=== PATIENT | male | born 1945 | race Caucasian/White ===

== ENCOUNTER 2016-12-30 18:59 | Observation (INO) ==
[2016-12-30] MEDS ORDERED: NITROGLYCERIN SL 0.4 MG TABLET SL STA (19:26)
[2016-12-30] MEDS ORDERED: ONDANSETRON 4 MG/2 ML VIAL IV STA (19:26)
[2016-12-30] MEDS ORDERED: NITROGLYCERIN SL 0.4 MG TABLET SL ONE (19:33)
[2016-12-30] MEDS ORDERED: ONDANSETRON 4 MG/2 ML VIAL ONE (19:33)
[2016-12-30 19:39] LABS: Basophils # 0.1 10*3/uL (0.0-0.2); Basophils % 0.7 % (0.0-0.8); Eosinophils # 0.3 10*3/uL (0.0-0.87); Eosinophils % 4.2 % (0.00-10.9); Hematocrit 39.2 VOL% (42.0-52.0); Immature Granulocytes % 0.3 %; Immature Granulocytes Absolute 0.02 #; Lymphocytes # 1.9 10*3/uL (1.4-4.0); Lymphocytes % 24.5 % (21.2-54.2); Mean Corpuscular HGB Conc 35.7 GM/DL (32-36); Mean Corpuscular Hemoglobin 30 PG (27-34); Mean Corpuscular Volume 84.1 FL (87-102); Mean Platelet Volume 9.3 FL (9.6-12.0); Monocytes # 0.8 10*3/uL (0.11-0.8); Monocytes % 10.6 % (1.7-12.7); Neutrophils # 4.6 10*3/uL (1.4-7.4); Neutrophils % 59.7 % (38.7-73.9); Platelet Count 163 T/CUMM (130-400); Red Blood Count 4.66 MC/CUMM (3.8-5.5); Red Cell Distribution Width 13.6 % (9.3-17.3); White Blood Count 7.6 T/CUMM (4-12)
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
--- NOTE | 2016-12-30 19:49 | XRay Report ---
XR chest 1V portable Indication: Chest pain Comparison: 07 December 2016 Findings: The heart and mediastinum are stable in size and configuration. Pacemaker device is unchanged in position. The pulmonary vascularity is normal in caliber. There is increased left lower lung density. No other lung infiltrates, effusions, pneumothorax or other abnormality is demonstrated. Impression: Small amount of increased left lower lung density could indicate pneumonia. PROCEDURE INTERPRETED AT [facility] DEPARTMENT OF RADIOLOGY Final Report Signed by: Dr. Eric Donohue
[2016-12-30 19:50] LABS: PT Patient Result 10.1 SECS; Partial Thromboplastin Time 27.5 SECS (0-40)
[2016-12-30 20:21] LABS: Alanine Aminotransferase 23 U/L (16-61); Albumin 3.6 G/DL (3.4-5.0); Alkaline Phosphatase 100 U/L (45-117); Aspartate Amino Transferase 14 U/L (0-37); Blood Urea Nitrogen 13 MG/DL (7-18); Calcium 8.6 MG/DL (8.5-10.1); Glucose 133 MG/DL (74-106); Osmolality,Calculated 282.3 MOS/KG (273-304); Potassium 3.7 MMOL/L (3.5-5.1); Sodium 141 MMOL/L (136-145); Total Protein 6.8 G/DL (6.4-8.3); Troponin I Only < 0.015 NG/ML (0.00-0.045)
[2016-12-30] MEDS ORDERED: ALBUTEROL/IPRATROPIUM 3 ML NEB RESP TX STA (20:50)
[2016-12-30] MEDS ORDERED: LEVOFLOXACIN INJ 750 MG in PREMIX 1 EACH IV STA (20:51)
[2016-12-30] MEDS ORDERED: LEVOFLOXACIN INJ 150 ML IV ONE (20:59)
[2016-12-30] MEDS ORDERED: ACETAMINOPHEN 325 MG TABLET PO PRN (22:17)
[2016-12-30] MEDS ORDERED: ONDANSETRON 4 MG/2 ML VIAL IV PRN (22:17)
[2016-12-30] MEDS ORDERED: GABAPENTIN 100 MG CAPSULE PO PRN (22:21)
[2016-12-30] MEDS ORDERED: DICLOFENAC 1% GEL 100 GM TUBE TOP PRN (22:21)
[2016-12-30] MEDS ORDERED: traMADol 50 MG TABLET PO PRN (22:21)
[2016-12-30] MEDS ORDERED: ENOXAPARIN 40 MG/0.4 ML SYRINGE SUBCUT SCH (22:30)
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
--- NOTE | 2016-12-31 01:33 | Order Completion Report ---
See report scanned to EMR
[2016-12-31 01:54] LABS: Basophils # 0.1 10*3/uL (0.0-0.2); Basophils % 0.7 % (0.0-0.8); Eosinophils # 0.2 10*3/uL (0.0-0.87); Eosinophils % 2.8 % (0.00-10.9); Hematocrit 37.1 VOL% (42.0-52.0); Hemoglobin 13.3 GM/DL (14.0-18.0); Immature Granulocytes % 0.3 %; Immature Granulocytes Absolute 0.02 #; Lymphocytes # 1.9 10*3/uL (1.4-4.0); Lymphocytes % 25.3 % (21.2-54.2); Mean Corpuscular HGB Conc 35.8 GM/DL (32-36); Mean Corpuscular Hemoglobin 30 PG (27-34); Mean Corpuscular Volume 84.5 FL (87-102); Mean Platelet Volume 10.2 FL (9.6-12.0); Monocytes # 0.7 10*3/uL (0.11-0.8); Monocytes % 9.2 % (1.7-12.7); Neutrophils # 4.6 10*3/uL (1.4-7.4); Neutrophils % 61.7 % (38.7-73.9); Platelet Count 159 T/CUMM (130-400); Red Blood Count 4.39 MC/CUMM (3.8-5.5); Red Cell Distribution Width 13.7 % (9.3-17.3); White Blood Count 7.5 T/CUMM (4-12)
[2016-12-31 01:59] LABS: Calcium 8.5 MG/DL (8.5-10.1); Magnesium 2.1 MG/DL (1.8-2.4); Osmolality,Calculated 286.8 MOS/KG (273-304)
[2016-12-31] MEDS ORDERED: FUROSEMIDE 40 MG TABLET PO SCH (08:00)
[2016-12-31] MEDS ORDERED: DILTIAZEM 30 MG TABLET PO SCH (09:00)
[2016-12-31] MEDS ORDERED: PANTOPRAZOLE 40 MG TABLET PO SCH (09:00)
[2016-12-31] MEDS ORDERED: CHOLECALCIFEROL 1,000 UNIT TABLET PO SCH (09:00)
[2016-12-31] MEDS ORDERED: TAMSULOSIN 0.4 MG CAPSULE PO SCH (09:00)
[2016-12-31] MEDS ORDERED: POTASSIUM CHLORIDE 20 MEQ TABLET PO SCH (09:00)
[2016-12-31] MEDS ORDERED: PROPRANOLOL 20 MG TABLET PO SCH (09:00)
[2016-12-31] MEDS ORDERED: FINASTERIDE 5 MG TABLET PO SCH (09:00)
[2016-12-31] MEDS ORDERED: ASPIRIN EC 81 MG TABLET PO SCH (09:00)
--- NOTE | 2016-12-31 09:35 | CT Report ---
CT chest wo con Indication: Abnormal left lung density Comparison: None available Technique: Axial CT imaging of the chest was done at 3 mm intervals without intravenous contrast. Findings: Calcified left lung granuloma and calcified left hilar lymph nodes are present The lungs show no evidence of infiltrates or airspace disease. No nodule or mass is identified. No effusion or pneumothorax is seen. The heart heart size is enlarged. Pulmonary vessels are slightly prominent.. Mediastinum and great vessels appear within normal limits. Pacemaker is present and appears within normal limits. No other abnormality is identified. Impression: Cardiomegaly and prominent pulmonary vascularity could indicate mild cardiac decompensation. No other evidence of acute findings. This CT exam was performed using one or more the following dose reduction techniques: Automated exposure control, adjustment of the MA and/or KV according to patient size, or use of iterative reconstruction technique. PROCEDURE INTERPRETED AT [facility] DEPARTMENT OF RADIOLOGY Final Report Signed by: Dr. Eric Donohue
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
[2016-12-31 11:31] VITALS: BP 124/82
--- NOTE | 2016-12-31 12:30 | Discharge Summary ---
Hospital Course - Hospital Course Hospital Course: Mr. Newton is a 71 year old male who has a history of hypertension, hyperlipidemia, and a recent dual-chamber pacemaker implant by Dr. Diez. Patient yesterday experienced some stabbing pains mild sharp pains in his left breast. There is a single spot that seemed to be involved. He checked his blood pressure at home and it was running high. Given his recent pacemaker he became worried and came to the hospital for further evaluation and management. There were no specific exacerbating or relieving factors. There were no associated symptoms such as nausea or diaphoresis. The chest pain was clearly not exertional or anginal in nature. He did not have any palpitations or syncope. On arrival to the hospital the patient's EKG showed no changes to suggest cardiac ischemia. He underwent multiple sets of cardiac enzymes all of which were negative. I personally performed a pacemaker interrogation today. He had excellent capture and sensing thresholds. There was no evidence of any significant abnormality of pacemaker function. Today the patient is not experiencing any symptoms. After discussing all this with the patient today he thinks that the pains were related to a torn rotator cuff in his shoulder. This is a known problem that he has not had addressed yet. He has no other complaints today. From my standpoint, his overnight hospital stay has shown no high risk abnormalities. His cardiac testing has been low risk. His pacemaker interrogation was normal. From my standpoint I think he could be discharged home to follow-up on Monday with his primary outpatient nut sheller machine operator, Dr. Hoyt as scheduled - Time spent with patient Time with patient DS: Less than 30 minutes Diagnosis - Discharge Diagnosis (1) Status post placement of cardiac pacemaker Status: Chronic (2) Hypertension Status: Chronic (3) Dyslipidemia Status: Chronic (4) Obese Status: Chronic (5) Obstructive sleep apnea Status: Chronic (6) Chest pain Status: Resolved Discharge Plan - Discharge Data Disposition: Disch To Home/Self Care Condition at Discharge: Stable Discharge Diet: advance to your usual diet - Discharge Medications Continue dilTIAZem HCl [Diltiazem HCl] 30 mg PO DAILY Tamsulosin [Flomax] 0.4 mg PO BID Propranolol HCl [Propranolol Tab] 20 mg PO BID Potassium Chloride 30 meq PO DAILY Cholecalciferol (Vitamin D3) [Vitamin D3] 5,000 unit PO DAILY Aspirin [Ecotrin] 81 mg PO DAILY Finasteride 5 mg PO DAILY Furosemide Tab [Lasix Tab] 40 mg PO BID DIURETIC #60 tablet Diclofenac 1% Gel [Voltaren 1% Gel] 1 applic TOP QID PRN PRN Reason: Pain Moderate To Severe (4-10) Tramadol HCl [Tramadol Tab] 50 mg PO Q6HR PRN PRN Reason: Pain Gabapentin Cap/Tab [Neurontin Cap/Tab] 100 mg PO TID PRN PRN Reason: Pain - Follow Up or Referral - Forms/Instructions Additional Discharge Instructions: Follow-up with your nut sheller machine operator next week as scheduled Exam - Constitutional Vitals: Period Temp Pulse Resp BP Sys/Mccormick Pulse Ox Last 24 Hr 96.9 F-98.3 F 60-75 15-20 107-152/54-87 92-99 Discharge Results Procedures and tests throughout hospitalization: Pending Orders 12/30/16 21:13 Blood Culture Stat Labs on day of discharge: Labs from last 24 hours 12/31/16 12/31/16 12/31/16 04:16 01:03 01:03 WBC RBC Hgb Hct MCV MCH MCHC RDW Plt Count MPV Neut % (Auto) Lymph % (Auto) [place] % (Auto) Eos % (Auto) Baso % (Auto) Neut # (Auto) Lymph # (Auto) [place] # (Auto) Eos # (Auto) Baso # (Auto) Immature Gran % Nucleated RBC % Immature Gran # Nucleated RBCs # Immature Plt Fraction INR PT Patient/Control Mix Circ Anticoag PTT Sodium 144 Potassium 4.0 Chloride 109 H Carbon Dioxide 27 Anion Gap 12.0 BUN 14 Creatinine 1.10 GFR Calculation 96 BUN/Creatinine Ratio 12.00 Glucose 107 H Hemoglobin A1c Calculated Osmolality 286.8 Calcium 8.5 Magnesium 2.1 Total Bilirubin AST ALT Alkaline Phosphatase Total Creatine Kinase CK-MB (CK-2) Troponin I < 0.015 < 0.015 B-Natriuretic Peptide Total Protein Albumin Globulin Albumin/Globulin Ratio 12/31/16 12/31/16 12/31/16 01:02 01:02 01:02 WBC 7.5 RBC 4.39 Hgb 13.3 L Hct 37.1 L MCV 84.5 L MCH 30 MCHC 35.8 RDW 13.7 Plt Count 159 MPV 10.2 Neut % (Auto) 61.7 Lymph % (Auto) 25.3 [place] % (Auto) 9.2 Eos % (Auto) 2.8 Baso % (Auto) 0.7 Neut # (Auto) 4.6 Lymph # (Auto) 1.9 [place] # (Auto) 0.7 Eos # (Auto) 0.2 Baso # (Auto) 0.1 Immature Gran % 0.3 Nucleated RBC % 0.0 Immature Gran # 0.02 Nucleated RBCs # 0.00 Immature Plt Fraction 0.0 INR PT Patient/Control Mix Circ Anticoag PTT Sodium Potassium Chloride Carbon Dioxide Anion Gap BUN Creatinine GFR Calculation BUN/Creatinine Ratio Glucose Hemoglobin A1c 6.3 Calculated Osmolality Calcium Magnesium Total Bilirubin AST ALT Alkaline Phosphatase Total Creatine Kinase CK-MB (CK-2) Troponin I B-Natriuretic Peptide 31 Total Protein Albumin Globulin Albumin/Globulin Ratio 12/30/16 12/30/16 12/30/16 19:23 19:23 19:23 WBC RBC Hgb Hct MCV MCH MCHC RDW Plt Count MPV Neut % (Auto) Lymph % (Auto) [place] % (Auto) Eos % (Auto) Baso % (Auto) Neut # (Auto) Lymph # (Auto) [place] # (Auto) Eos # (Auto) Baso # (Auto) Immature Gran % Nucleated RBC % Immature Gran # Nucleated RBCs # Immature Plt Fraction INR 1.0 PT Patient/Control Mix 10.1 Circ Anticoag PTT 27.5 Sodium 141 Potassium 3.7 Chloride 107 Carbon Dioxide 27 Anion Gap 10.7 BUN 13 Creatinine 1.10 GFR Calculation 96 BUN/Creatinine Ratio 11.00 Glucose 133 H Hemoglobin A1c Calculated Osmolality 282.3 Calcium 8.6 Magnesium Total Bilirubin 0.40 AST 14 ALT 23 Alkaline Phosphatase 100 Total Creatine Kinase 94 CK-MB (CK-2) 1.4 Troponin I < 0.015 B-Natriuretic Peptide 32 Total Protein 6.8 Albumin 3.6 Globulin 3.2 Albumin/Globulin Ratio 1.1 12/30/16 19:23 WBC 7.6 RBC 4.66 Hgb 14.0 Hct 39.2 L MCV 84.1 L MCH 30 MCHC 35.7 RDW 13.6 Plt Count 163 MPV 9.3 L Neut % (Auto) 59.7 Lymph % (Auto) 24.5 [place] % (Auto) 10.6 Eos % (Auto) 4.2 Baso % (Auto) 0.7 Neut # (Auto) 4.6 Lymph # (Auto) 1.9 [place] # (Auto) 0.8 Eos # (Auto) 0.3 Baso # (Auto) 0.1 Immature Gran % 0.3 Nucleated RBC % 0.0 Immature Gran # 0.02 Nucleated RBCs # 0.00 Immature Plt Fraction 0.0 INR PT Patient/Control Mix Circ Anticoag PTT Sodium Potassium Chloride Carbon Dioxide Anion Gap BUN Creatinine GFR Calculation BUN/Creatinine Ratio Glucose Hemoglobin A1c Calculated Osmolality Calcium Magnesium Total Bilirubin AST ALT Alkaline Phosphatase Total Creatine Kinase CK-MB (CK-2) Troponin I B-Natriuretic Peptide Total Protein Albumin Globulin Albumin/Globulin Ratio DS: Provider Date of admission: 12/30/16 21:54 Primary care physician: Robi Shukla Attending physician on admission: Emir Mancilla MD Consults: 12/30/16 22:17 Consult to Physician [CONS] Routine Comment: Chest pain Consulting Provider: Cardiology - [facility] Discharging clinician: Cassandra Reyez MD Expected date of discharge: 12/31/16
--- NOTE | 2017-01-01 20:10 | Order Completion Report ---
See report scanned to EMR
== END 2016-12-31 13:33 | disposition home or self-care (01) ==
LOC: EDBD → EDUNIT# → N.EDINP 18:59 → N.ED 18:59 → SUATTDRO 21:54 → N.TELES 22:22
PROVIDERS: ADMIT Internal Medicine; ATTEND Family Medicine

== ENCOUNTER 2017-04-20 19:14 | Observation (INO) ==
[2017-04-20] MEDS ORDERED: KETOROLAC 30 MG/1 ML VIAL IV STA (20:28)
[2017-04-20] MEDS ORDERED: ASPIRIN 325 MG TABLET PO STA (20:28)
[2017-04-20] MEDS ORDERED: NITROGLYCERIN 2% OINT 1 INCH/GM PACK TOP STA (20:28)
[2017-04-20] MEDS ORDERED: NITROGLYCERIN 2% OINT 1 INCH/GM PACK TOP ONE (20:38)
[2017-04-20] MEDS ORDERED: KETOROLAC 30 MG/1 ML VIAL ONE (20:39)
[2017-04-20] MEDS ORDERED: ASPIRIN EC 325 MG TABLET PO ONE (20:39)
[2017-04-20 20:44] LABS: Basophils # 0.1 10*3/uL (0.0-0.2); Basophils % 0.6 % (0.0-0.8); Eosinophils # 0.3 10*3/uL (0.0-0.87); Eosinophils % 3.3 % (0.00-10.9); Immature Granulocytes % 0.6 %; Immature Granulocytes Absolute 0.05 #; Lymphocytes # 1.7 10*3/uL (1.4-4.0); Lymphocytes % 20.5 % (21.2-54.2); Mean Corpuscular HGB Conc 33.3 GM/DL (32-36); Mean Corpuscular Hemoglobin 30 PG (27-34); Mean Corpuscular Volume 89.4 FL (87-102); Mean Platelet Volume 10.1 FL (9.6-12.0); Monocytes % 12.2 % (1.7-12.7); Neutrophils # 5.3 10*3/uL (1.4-7.4); Neutrophils % 62.8 % (38.7-73.9); Platelet Count 176 T/CUMM (130-400); Red Blood Count 4.36 MC/CUMM (3.8-5.5); Red Cell Distribution Width 13.7 % (9.3-17.3); White Blood Count 8.4 T/CUMM (4-12)
[2017-04-20 20:49] LABS: Albumin 3.8 G/DL (3.4-5.0); Bilirubin,Total 0.4 MG/DL (0.2-1.0); Calcium 8.8 MG/DL (8.5-10.1); Osmolality,Calculated 286.1 MOS/KG (273-304); Potassium 4.2 MMOL/L (3.5-5.1); Total Protein 6.8 G/DL (6.4-8.3)
[2017-04-20] MEDS ORDERED: ONDANSETRON 4 MG/2 ML VIAL IV PRN (23:34)
[2017-04-20] MEDS ORDERED: ACETAMINOPHEN 325 MG TABLET PO PRN (23:34)
[2017-04-20] MEDS ORDERED: MORPHINE 10 MG/1 ML VIAL IV PRN (23:34)
[2017-04-21] MEDS ORDERED: DILTIAZEM 30 MG TABLET PO PRN (00:27)
[2017-04-21] MEDS ORDERED: DICLOFENAC 1% GEL 100 GM TUBE TOP PRN (00:27)
[2017-04-21] MEDS ORDERED: traMADol 50 MG TABLET PO PRN (00:27)
[2017-04-21] MEDS ORDERED: NITROGLYCERIN SL 0.4 MG TABLET SL STA (00:33)
[2017-04-21] MEDS: TAMSULOSIN 0.4 MG CAPSULE PO SCH ×3 (01:11→20:27)
[2017-04-21 02:37] LABS: Basophils % 0.6 % (0.0-0.8); Eosinophils # 0.3 10*3/uL (0.0-0.87); Eosinophils % 3.8 % (0.00-10.9); Hematocrit 36.1 VOL% (42.0-52.0); Hemoglobin 12.3 GM/DL (14.0-18.0); Immature Granulocytes % 0.3 %; Immature Granulocytes Absolute 0.02 #; Lymphocytes # 2.2 10*3/uL (1.4-4.0); Lymphocytes % 32.5 % (21.2-54.2); Mean Corpuscular HGB Conc 34.1 GM/DL (32-36); Mean Corpuscular Hemoglobin 30 PG (27-34); Mean Corpuscular Volume 87.8 FL (87-102); Mean Platelet Volume 9.8 FL (9.6-12.0); Monocytes # 0.7 10*3/uL (0.11-0.8); Monocytes % 10.5 % (1.7-12.7); Neutrophils # 3.5 10*3/uL (1.4-7.4); Neutrophils % 52.3 % (38.7-73.9); Platelet Count 154 T/CUMM (130-400); Red Blood Count 4.11 MC/CUMM (3.8-5.5); Red Cell Distribution Width 13.8 % (9.3-17.3); White Blood Count 6.7 T/CUMM (4-12)
[2017-04-21 03:02] LABS: Calcium 8.4 MG/DL (8.5-10.1); Magnesium 2.3 MG/DL (1.8-2.4); Potassium 4.1 MMOL/L (3.5-5.1); Risk Ratio 3.43; VLDL CHOLESTEROL 19.4 MG/DL
[2017-04-21] MEDS ORDERED: MAGNESIUM SULF RIDER 2 GM in PREMIX 1 EACH IV PRN (08:58)
[2017-04-21] MEDS ORDERED: POTASSIUM CHLORIDE RIDER 10 MEQ in PREMIX 1 EACH IV PRN (08:58)
[2017-04-21] MEDS: ENOXAPARIN 40 MG/0.4 ML SYRINGE SUBCUT SCH (09:04)
[2017-04-21] MEDS: ASPIRIN EC 81 MG TABLET PO SCH (09:05)
[2017-04-21] MEDS: POTASSIUM CHLORIDE 10 MEQ TABLET PO SCH (09:05)
[2017-04-21] MEDS: PROPRANOLOL 20 MG TABLET PO SCH ×3 (09:05→20:27)
[2017-04-21] MEDS: FUROSEMIDE 40 MG TABLET PO SCH ×2 (09:05→16:03)
[2017-04-21] MEDS: hydrALAZINE 10 MG TABLET PO SCH ×3 (09:05→20:27)
[2017-04-21] MEDS: CHOLECALCIFEROL 5,000 UNIT TABLET PO SCH (09:05)
[2017-04-21] MEDS: FINASTERIDE 5 MG TABLET PO SCH (09:06)
[2017-04-21] MEDS ORDERED: diphenhydrAMINE CAP 25 MG CAPSULE PO ONE (10:00)
[2017-04-21] MEDS ORDERED: DIAZEPAM 5 MG TABLET PO ONE (10:00)
[2017-04-21] MEDS ORDERED: VERAPAMIL 5 MG/2 ML VIAL ONE (12:13)
[2017-04-21] MEDS ORDERED: NITROGLYCERIN DRIP 50 MG/250 ML BOTTLE IV ONE (12:13)
[2017-04-21] MEDS ORDERED: LIDOCAINE 1% 20 ML VIAL ONE (12:19)
[2017-04-21] MEDS ORDERED: HYDROmorphone 2 MG/1 ML VIAL ONE (12:21)
[2017-04-21] MEDS ORDERED: ENOXAPARIN 60 MG/0.6 ML SYRINGE ONE (12:27)
[2017-04-22 06:10] LABS: Basophils % 0.5 % (0.0-0.8); Eosinophils # 0.2 10*3/uL (0.0-0.87); Eosinophils % 3.2 % (0.00-10.9); Hematocrit 37.5 VOL% (42.0-52.0); Hemoglobin 13.1 GM/DL (14.0-18.0); Immature Granulocytes % 0.3 %; Immature Granulocytes Absolute 0.02 #; Lymphocytes # 1.8 10*3/uL (1.4-4.0); Lymphocytes % 27.5 % (21.2-54.2); Mean Corpuscular HGB Conc 34.9 GM/DL (32-36); Mean Corpuscular Hemoglobin 31 PG (27-34); Mean Corpuscular Volume 87.2 FL (87-102); Mean Platelet Volume 9.7 FL (9.6-12.0); Monocytes # 0.7 10*3/uL (0.11-0.8); Monocytes % 10.2 % (1.7-12.7); Neutrophils # 3.8 10*3/uL (1.4-7.4); Neutrophils % 58.3 % (38.7-73.9); Platelet Count 155 T/CUMM (130-400); Red Cell Distribution Width 13.7 % (9.3-17.3); White Blood Count 6.5 T/CUMM (4-12)
[2017-04-22 06:46] LABS: Calcium 8.5 MG/DL (8.5-10.1); Magnesium 2.3 MG/DL (1.8-2.4)
[2017-04-22] MEDS: ENOXAPARIN 40 MG/0.4 ML SYRINGE SUBCUT SCH (08:00)
[2017-04-22] MEDS: PROPRANOLOL 20 MG TABLET PO SCH (08:01)
[2017-04-22] MEDS: FUROSEMIDE 40 MG TABLET PO SCH (08:01)
[2017-04-22] MEDS: TAMSULOSIN 0.4 MG CAPSULE PO SCH (08:01)
[2017-04-22] MEDS: hydrALAZINE 10 MG TABLET PO SCH (08:01)
[2017-04-22] MEDS: CHOLECALCIFEROL 5,000 UNIT TABLET PO SCH (08:01)
[2017-04-22] MEDS: ASPIRIN EC 81 MG TABLET PO SCH (08:01)
[2017-04-22] MEDS: FINASTERIDE 5 MG TABLET PO SCH (08:01)
[2017-04-22] MEDS: POTASSIUM CHLORIDE 10 MEQ TABLET PO SCH (08:01)
[2017-04-22 12:12] VITALS: BP 121/61
== END 2017-04-22 13:15 | disposition home or self-care (01) ==
LOC: N.EDINP 19:14 → N.ED 19:14 → N.TELES 04-21 00:07
PROVIDERS: ADMIT Internal Medicine; ATTEND Internal Medicine
PROC: CLCCHCL (ICD-10-PCS; 2017-04-21 10:45)

== ENCOUNTER 2017-10-17 10:33 | Inpatient (IN) ==
[2017-10-17] MEDS ORDERED: SODIUM CHLORIDE 0.9% 1,000 ML IV STA (11:00)
[2017-10-17] MEDS ORDERED: ACETAMINOPHEN 500 MG TABLET PO STA (11:01)
[2017-10-17] MEDS ORDERED: KETOROLAC 30 MG/1 ML VIAL IV STA (11:04)
[2017-10-17 11:34] LABS: Basophils % 0.2 % (0.0-0.8); Hematocrit 38.1 VOL% (42.0-52.0); Hemoglobin 13.1 GM/DL (14.0-18.0); Immature Granulocytes % 0.6 %; Immature Granulocytes Absolute 0.06 #; Lymphocytes # 0.3 10*3/uL (1.4-4.0); Lymphocytes % 3.1 % (21.2-54.2); Mean Corpuscular HGB Conc 34.4 GM/DL (32-36); Mean Corpuscular Hemoglobin 30 PG (27-34); Mean Platelet Volume 9.3 FL (9.6-12.0); Monocytes # 0.8 10*3/uL (0.11-0.8); Monocytes % 7.2 % (1.7-12.7); Neutrophils # 9.6 10*3/uL (1.4-7.4); Neutrophils % 88.9 % (38.7-73.9); Platelet Count 118 T/CUMM (130-400); Red Blood Count 4.33 MC/CUMM (3.8-5.5); Red Cell Distribution Width 14.3 % (9.3-17.3); White Blood Count 10.8 T/CUMM (4-12)
[2017-10-17 11:37] LABS: PT Patient Result 10.7 SECS
[2017-10-17 11:47] LABS: Band Neutrophils 1 % (0-10); Hypochromasia 1+; Lymphocytes 2 % (20-55); Ovalocytes Slight; Platelet Estimate Decreased; Segmented Neutrophils 90 % (50-85); Total Cells Counted 100
[2017-10-17 12:00] LABS: Lactic Acid 1.8 MMOL/L (0.4-2.0)
[2017-10-17 12:04] LABS: Albumin 3.7 G/DL (3.4-5.0); Calcium 8.5 MG/DL (8.5-10.1); Osmolality,Calculated 280.5 MOS/KG (273-304); Potassium 3.7 MMOL/L (3.5-5.1); Total Protein 7.3 G/DL (6.4-8.3)
[2017-10-17 12:46] LABS: Apearance,Urine CLEAR (Clear); Bilirubin,Urine Negative (Negative); Blood, Urine Negative (Negative); Glucose,Urine (UA) Negative (Negative); Ketones,Urine Negative (Negative); Nitrite,Urine Negative (Negative); Protein,Urine Negative; RBC,Urine <1 /HPF (0-4); Squamous Epithelial Cell,Urine Occasional /HPF (0-10); Urine Color Yellow (Yellow); Urine Specific Gravity 1.019 (1.001-1.035); Urine Urobilinogen < 2.0 EU/DL (0.2-1.0); WBC,Urine 5 /HPF (0-6)
[2017-10-17] MEDS ORDERED: cefTRIAXone 1,000 MG in SODIUM CHLORIDE 0.9% 100 ML IV STA (14:02)
[2017-10-17] MEDS: ACETAMINOPHEN 325 MG TABLET PO PRN ×2 (17:05→21:39)
[2017-10-17] MEDS: ONDANSETRON 4 MG/2 ML VIAL IV PRN (17:06)
[2017-10-17] MEDS: PIPERACILLIN/TAZOBACTAM 3,375 MG in SODIUM CHLORIDE 0.9% 100 ML IV SCH (17:09)
[2017-10-18] MEDS: PIPERACILLIN/TAZOBACTAM 3,375 MG in SODIUM CHLORIDE 0.9% 100 ML IV SCH ×3 (00:26→18:21)
[2017-10-18] MEDS: ACETAMINOPHEN 325 MG TABLET PO PRN ×3 (04:33→18:34)
[2017-10-18 06:21] LABS: Basophils % 0.2 % (0.0-0.8); Hematocrit 36.2 VOL% (42.0-52.0); Hemoglobin 12.4 GM/DL (14.0-18.0); Immature Granulocytes % 1.1 %; Lymphocytes # 0.2 10*3/uL (1.4-4.0); Mean Corpuscular HGB Conc 34.3 GM/DL (32-36); Mean Corpuscular Hemoglobin 30 PG (27-34); Mean Corpuscular Volume 87.7 FL (87-102); Mean Platelet Volume 10.5 FL (9.6-12.0); Monocytes # 0.4 10*3/uL (0.11-0.8); Monocytes % 3.7 % (1.7-12.7); Neutrophils # 8.7 10*3/uL (1.4-7.4); Red Blood Count 4.13 MC/CUMM (3.8-5.5); Red Cell Distribution Width 14.7 % (9.3-17.3); White Blood Count 9.4 T/CUMM (4-12)
[2017-10-18 06:27] LABS: Platelet Count 93 T/CUMM (130-400)
[2017-10-18 06:28] LABS: Calcium 8.1 MG/DL (8.5-10.1); Osmolality,Calculated 283.5 MOS/KG (273-304); Potassium 3.8 MMOL/L (3.5-5.1)
[2017-10-18 06:31] LABS: Band Neutrophils 12 % (0-10); Hypochromasia 1+; Lymphocytes 3 % (20-55); Ovalocytes Slight; Platelet Estimate Decreased; Segmented Neutrophils 82 % (50-85); Total Cells Counted 100
[2017-10-18 06:39] LABS: Risk Ratio 2.73; Thyroid Stimulating Hormone 1.52 uIU/ml (0.358-3.74); VLDL CHOLESTEROL 22.8 MG/DL
[2017-10-18] MEDS: PANTOPRAZOLE 40 MG TABLET PO SCH (08:48)
[2017-10-18] MEDS: VANCOMYCIN INJ 2,000 MG in SODIUM CHLORIDE 0.9% 500 ML IV SCH (13:15)
[2017-10-18] MEDS: ONDANSETRON 4 MG/2 ML VIAL IV PRN (16:23)
[2017-10-19] MEDS: VANCOMYCIN INJ 2,000 MG in SODIUM CHLORIDE 0.9% 500 ML IV SCH ×3 (00:02→23:19)
[2017-10-19] MEDS: ACETAMINOPHEN 325 MG TABLET PO PRN ×3 (00:59→18:18)
[2017-10-19] MEDS: PIPERACILLIN/TAZOBACTAM 3,375 MG in SODIUM CHLORIDE 0.9% 100 ML IV SCH (05:41)
[2017-10-19] MEDS: PANTOPRAZOLE 40 MG TABLET PO SCH (08:31)
[2017-10-19] MEDS: ONDANSETRON 4 MG/2 ML VIAL IV PRN (11:38)
[2017-10-20 08:46] LABS: Calcium 8.2 MG/DL (8.5-10.1); Potassium 3.6 MMOL/L (3.5-5.1)
[2017-10-20] MEDS: PANTOPRAZOLE 40 MG TABLET PO SCH (08:49)
[2017-10-20] MEDS: ACETAMINOPHEN 325 MG TABLET PO PRN (13:11)
[2017-10-20] MEDS: VANCOMYCIN INJ 2,000 MG in SODIUM CHLORIDE 0.9% 500 ML IV SCH ×2 (13:13→21:10)
[2017-10-20] MEDS ORDERED: VANCOMYCIN INJ 2,000 MG in SODIUM CHLORIDE 0.9% 500 ML IV ONE (13:30)
[2017-10-21 03:20] LABS: Basophils % 0.4 % (0.0-0.8); Eosinophils # 0.1 10*3/uL (0.0-0.87); Eosinophils % 1.6 % (0.00-10.9); Hematocrit 32.8 VOL% (42.0-52.0); Hemoglobin 11.4 GM/DL (14.0-18.0); Immature Granulocytes % 0.8 %; Immature Granulocytes Absolute 0.04 #; Mean Corpuscular HGB Conc 34.8 GM/DL (32-36); Mean Corpuscular Hemoglobin 30 PG (27-34); Mean Platelet Volume 11.7 FL (9.6-12.0); Monocytes # 0.7 10*3/uL (0.11-0.8); Neutrophils # 3.3 10*3/uL (1.4-7.4); Neutrophils % 65.2 % (38.7-73.9); Platelet Count 55 T/CUMM (130-400); Red Blood Count 3.86 MC/CUMM (3.8-5.5); Red Cell Distribution Width 14.4 % (9.3-17.3)
[2017-10-21 03:51] LABS: Calcium 8.3 MG/DL (8.5-10.1); Osmolality,Calculated 274.7 MOS/KG (273-304); Potassium 3.4 MMOL/L (3.5-5.1)
[2017-10-21 03:52] LABS: Band Neutrophils 2 % (0-10); Eosinophils 3 % (0-10); Lymphocytes 21 % (20-55); Platelet Estimate Decreased; Segmented Neutrophils 67 % (50-85); Total Cells Counted 100
[2017-10-21] MEDS: PANTOPRAZOLE 40 MG TABLET PO SCH (08:37)
[2017-10-21] MEDS: VANCOMYCIN INJ 2,000 MG in SODIUM CHLORIDE 0.9% 500 ML IV SCH ×2 (08:38→21:42)
[2017-10-22 05:53] LABS: Basophils % 0.2 % (0.0-0.8); Eosinophils # 0.2 10*3/uL (0.0-0.87); Eosinophils % 2.6 % (0.00-10.9); Hematocrit 31.3 VOL% (42.0-52.0); Hemoglobin 10.9 GM/DL (14.0-18.0); Immature Granulocytes % 1.6 %; Immature Granulocytes Absolute 0.09 #; Lymphocytes # 1.5 10*3/uL (1.4-4.0); Lymphocytes % 26.1 % (21.2-54.2); Mean Corpuscular HGB Conc 34.8 GM/DL (32-36); Mean Corpuscular Hemoglobin 29 PG (27-34); Mean Corpuscular Volume 83.9 FL (87-102); Mean Platelet Volume 11.9 FL (9.6-12.0); Monocytes # 0.8 10*3/uL (0.11-0.8); Monocytes % 13.1 % (1.7-12.7); Neutrophils # 3.3 10*3/uL (1.4-7.4); Neutrophils % 56.4 % (38.7-73.9); Platelet Count 66 T/CUMM (130-400); Red Blood Count 3.73 MC/CUMM (3.8-5.5); Red Cell Distribution Width 14.5 % (9.3-17.3); White Blood Count 5.8 T/CUMM (4-12)
[2017-10-22 06:16] LABS: Calcium 8.2 MG/DL (8.5-10.1)
[2017-10-22 06:17] LABS: Band Neutrophils 3 % (0-10); Eosinophils 5 % (0-10); Lymphocytes 20 % (20-55); Osmolality,Calculated 279.3 MOS/KG (273-304); Potassium 3.1 MMOL/L (3.5-5.1); Segmented Neutrophils 62 % (50-85); Total Cells Counted 100
[2017-10-22 06:18] LABS: Hypochromasia 1+; Platelet Estimate Decreased
[2017-10-22] MEDS: PANTOPRAZOLE 40 MG TABLET PO SCH (09:07)
[2017-10-22] MEDS: VANCOMYCIN INJ 2,000 MG in SODIUM CHLORIDE 0.9% 500 ML IV SCH ×2 (09:08→20:45)
[2017-10-22] MEDS: ERYTHROMYCIN 0.5% OPHT OINT 3.5 GM TUBE LEFT EYE SCH ×3 (13:17→20:49)
[2017-10-22] MEDS: ACETAMINOPHEN 325 MG TABLET PO PRN (18:43)
[2017-10-23] MEDS: POTASSIUM CHLORIDE RIDER 10 MEQ in PREMIX 1 EACH IV PRN ×4 (00:04→04:07)
[2017-10-23 06:28] LABS: Basophils % 0.6 % (0.0-0.8); Eosinophils # 0.2 10*3/uL (0.0-0.87); Eosinophils % 3.4 % (0.00-10.9); Hematocrit 32.2 VOL% (42.0-52.0); Immature Granulocytes % 2.4 %; Immature Granulocytes Absolute 0.16 #; Lymphocytes # 1.7 10*3/uL (1.4-4.0); Lymphocytes % 26.5 % (21.2-54.2); Mean Corpuscular HGB Conc 34.2 GM/DL (32-36); Mean Corpuscular Hemoglobin 29 PG (27-34); Mean Corpuscular Volume 86.1 FL (87-102); Mean Platelet Volume 11.2 FL (9.6-12.0); Monocytes # 0.8 10*3/uL (0.11-0.8); Monocytes % 11.9 % (1.7-12.7); Neutrophils # 3.6 10*3/uL (1.4-7.4); Neutrophils % 55.2 % (38.7-73.9); Platelet Count 105 T/CUMM (130-400); Red Blood Count 3.74 MC/CUMM (3.8-5.5); Red Cell Distribution Width 14.5 % (9.3-17.3); White Blood Count 6.6 T/CUMM (4-12)
[2017-10-23 06:48] LABS: Platelet Estimate Adequate
[2017-10-23 06:49] LABS: Anisocytosis 1+
[2017-10-23 06:54] LABS: Calcium 8.1 MG/DL (8.5-10.1); Osmolality,Calculated 281.1 MOS/KG (273-304); Potassium 3.3 MMOL/L (3.5-5.1)
[2017-10-23] MEDS: PANTOPRAZOLE 40 MG TABLET PO SCH (08:54)
[2017-10-23] MEDS: ERYTHROMYCIN 0.5% OPHT OINT 3.5 GM TUBE LEFT EYE SCH ×4 (08:54→20:25)
[2017-10-23] MEDS: VANCOMYCIN INJ 2,000 MG in SODIUM CHLORIDE 0.9% 500 ML IV SCH ×2 (08:54→16:42)
[2017-10-23] MEDS ORDERED: DICLOFENAC 1% GEL 100 GM TUBE TOP PRN (09:40)
[2017-10-23] MEDS ORDERED: DILTIAZEM 30 MG TABLET PO PRN (09:40)
[2017-10-23] MEDS ORDERED: FUROSEMIDE 40 MG/4 ML VIAL IV ONE (09:42)
[2017-10-23] MEDS: CHOLECALCIFEROL 5,000 UNIT TABLET PO SCH (10:21)
[2017-10-23] MEDS: ASPIRIN EC 81 MG TABLET PO SCH (10:21)
[2017-10-23] MEDS: POTASSIUM CHLORIDE 20 MEQ TABLET PO SCH ×2 (10:21→16:42)
[2017-10-23] MEDS: ALLOPURINOL 300 MG TABLET PO SCH (10:27)
[2017-10-23] MEDS: PROPRANOLOL 20 MG TABLET PO SCH ×2 (15:37→20:25)
[2017-10-23] MEDS: GABAPENTIN 100 MG CAPSULE PO SCH ×2 (15:37→20:25)
[2017-10-23] MEDS: FUROSEMIDE 40 MG TABLET PO SCH (15:37)
[2017-10-23] MEDS: hydrALAZINE 10 MG TABLET PO SCH ×2 (15:37→20:25)
[2017-10-23] MEDS: SODIUM CHLORIDE 0.9% 1,000 ML IV SCH (18:06)
[2017-10-23] MEDS: TAMSULOSIN 0.4 MG CAPSULE PO SCH (20:25)
[2017-10-24] MEDS: VANCOMYCIN INJ 2,000 MG in SODIUM CHLORIDE 0.9% 500 ML IV SCH ×3 (00:56→18:10)
[2017-10-24 06:15] LABS: Basophils % 0.5 % (0.0-0.8); Eosinophils # 0.2 10*3/uL (0.0-0.87); Eosinophils % 2.9 % (0.00-10.9); Hematocrit 31.8 VOL% (42.0-52.0); Hemoglobin 10.8 GM/DL (14.0-18.0); Immature Granulocytes % 3.8 %; Immature Granulocytes Absolute 0.29 #; Lymphocytes # 2.4 10*3/uL (1.4-4.0); Lymphocytes % 31.6 % (21.2-54.2); Mean Corpuscular Hemoglobin 29 PG (27-34); Mean Corpuscular Volume 86.2 FL (87-102); Mean Platelet Volume 10.8 FL (9.6-12.0); Monocytes # 0.9 10*3/uL (0.11-0.8); Monocytes % 11.3 % (1.7-12.7); Neutrophils # 3.8 10*3/uL (1.4-7.4); Neutrophils % 49.9 % (38.7-73.9); Platelet Count 141 T/CUMM (130-400); Red Blood Count 3.69 MC/CUMM (3.8-5.5); Red Cell Distribution Width 14.4 % (9.3-17.3); White Blood Count 7.6 T/CUMM (4-12)
[2017-10-24 06:34] LABS: Calcium 8.1 MG/DL (8.5-10.1); Osmolality,Calculated 282.1 MOS/KG (273-304); Potassium 3.3 MMOL/L (3.5-5.1)
[2017-10-24 07:00] LABS: Eosinophils 6 % (0-10); Hypochromasia 1+; Lymphocytes 36 % (20-55); Ovalocytes Slight; Platelet Estimate Normal; Segmented Neutrophils 47 % (50-85); Total Cells Counted 100
[2017-10-24] MEDS ORDERED: POTASSIUM CHLORIDE 20 MEQ TABLET PO ONE (10:00)
[2017-10-24] MEDS: hydrALAZINE 10 MG TABLET PO SCH ×3 (10:09→21:15)
[2017-10-24] MEDS: FUROSEMIDE 40 MG TABLET PO SCH ×2 (10:09→17:24)
[2017-10-24] MEDS: GABAPENTIN 100 MG CAPSULE PO SCH ×3 (10:10→21:15)
[2017-10-24] MEDS: TAMSULOSIN 0.4 MG CAPSULE PO SCH ×2 (10:10→21:15)
[2017-10-24] MEDS: PANTOPRAZOLE 40 MG TABLET PO SCH (10:10)
[2017-10-24] MEDS: PROPRANOLOL 20 MG TABLET PO SCH ×3 (10:10→21:15)
[2017-10-24] MEDS: ERYTHROMYCIN 0.5% OPHT OINT 3.5 GM TUBE LEFT EYE SCH ×4 (10:10→21:15)
[2017-10-24] MEDS: POTASSIUM CHLORIDE 10 MEQ TABLET PO SCH (10:10)
[2017-10-24] MEDS: ASPIRIN EC 81 MG TABLET PO SCH (10:10)
[2017-10-24] MEDS: ALLOPURINOL 300 MG TABLET PO SCH (10:11)
[2017-10-24] MEDS: CHOLECALCIFEROL 5,000 UNIT TABLET PO SCH (10:11)
[2017-10-24] MEDS: SODIUM CHLORIDE 0.9% 1,000 ML IV SCH ×2 (10:11→17:25)
[2017-10-24] MEDS: FINASTERIDE 5 MG TABLET PO SCH (10:11)
[2017-10-24] MEDS ORDERED: fentaNYL 100 MCG/2 ML VIAL ONE (14:05)
[2017-10-24] MEDS ORDERED: PROPOFOL 200 MG/20 ML VIAL IV ONE (14:05)
[2017-10-25] MEDS: VANCOMYCIN INJ 1,750 MG in SODIUM CHLORIDE 0.9% 500 ML IV SCH ×3 (02:31→21:00)
[2017-10-25 05:41] LABS: Basophils % 0.4 % (0.0-0.8); Eosinophils # 0.2 10*3/uL (0.0-0.87); Eosinophils % 2.7 % (0.00-10.9); Hematocrit 32.9 VOL% (42.0-52.0); Hemoglobin 11.5 GM/DL (14.0-18.0); Immature Granulocytes % 2.3 %; Immature Granulocytes Absolute 0.17 #; Lymphocytes # 1.9 10*3/uL (1.4-4.0); Lymphocytes % 25.7 % (21.2-54.2); Mean Corpuscular Hemoglobin 29 PG (27-34); Mean Corpuscular Volume 83.9 FL (87-102); Mean Platelet Volume 10.1 FL (9.6-12.0); Monocytes # 0.9 10*3/uL (0.11-0.8); Monocytes % 11.8 % (1.7-12.7); Neutrophils # 4.2 10*3/uL (1.4-7.4); Neutrophils % 57.1 % (38.7-73.9); Platelet Count 175 T/CUMM (130-400); Red Blood Count 3.92 MC/CUMM (3.8-5.5); Red Cell Distribution Width 14.6 % (9.3-17.3); White Blood Count 7.4 T/CUMM (4-12)
[2017-10-25 06:13] LABS: Eosinophils 4 % (0-10); Hypochromasia 1+; Lymphocytes 23 % (20-55); Ovalocytes Slight; Platelet Estimate Normal; Segmented Neutrophils 64 % (50-85); Total Cells Counted 100
[2017-10-25 06:14] LABS: Calcium 8.1 MG/DL (8.5-10.1); Potassium 3.7 MMOL/L (3.5-5.1)
[2017-10-25] MEDS: FINASTERIDE 5 MG TABLET PO SCH (09:11)
[2017-10-25] MEDS: PROPRANOLOL 20 MG TABLET PO SCH ×3 (09:11→21:00)
[2017-10-25] MEDS: TAMSULOSIN 0.4 MG CAPSULE PO SCH ×2 (09:11→21:01)
[2017-10-25] MEDS: CHOLECALCIFEROL 5,000 UNIT TABLET PO SCH (09:11)
[2017-10-25] MEDS: POTASSIUM CHLORIDE 10 MEQ TABLET PO SCH (09:11)
[2017-10-25] MEDS: hydrALAZINE 10 MG TABLET PO SCH ×3 (09:12→21:01)
[2017-10-25] MEDS: PANTOPRAZOLE 40 MG TABLET PO SCH (09:12)
[2017-10-25] MEDS: ASPIRIN EC 81 MG TABLET PO SCH (09:12)
[2017-10-25] MEDS: GABAPENTIN 100 MG CAPSULE PO SCH ×3 (09:12→21:01)
[2017-10-25] MEDS: ALLOPURINOL 300 MG TABLET PO SCH (09:12)
[2017-10-25] MEDS: FUROSEMIDE 40 MG TABLET PO SCH ×2 (09:12→16:35)
[2017-10-25] MEDS: ERYTHROMYCIN 0.5% OPHT OINT 3.5 GM TUBE LEFT EYE SCH ×2 (09:30→13:50)
[2017-10-25] MEDS: ATROPINE 1 % OPH SOLN 5 ML BOTTLE LEFT EYE SCH ×2 (17:55→21:02)
[2017-10-25] MEDS: DIFLUPREDNATE 0.05% OPH EMUL 5 ML BOTTLE LEFT EYE SCH ×2 (17:55→21:02)
[2017-10-26] MEDS: VANCOMYCIN INJ 1,750 MG in SODIUM CHLORIDE 0.9% 500 ML IV SCH ×2 (06:22→09:43)
[2017-10-26] MEDS: POTASSIUM CHLORIDE 10 MEQ TABLET PO SCH (09:38)
[2017-10-26] MEDS: CHOLECALCIFEROL 5,000 UNIT TABLET PO SCH (09:38)
[2017-10-26] MEDS: ASPIRIN EC 81 MG TABLET PO SCH (09:39)
[2017-10-26] MEDS: hydrALAZINE 10 MG TABLET PO SCH ×2 (09:39→15:15)
[2017-10-26] MEDS: ALLOPURINOL 300 MG TABLET PO SCH (09:39)
[2017-10-26] MEDS: PROPRANOLOL 20 MG TABLET PO SCH ×2 (09:39→15:15)
[2017-10-26] MEDS: GABAPENTIN 100 MG CAPSULE PO SCH ×2 (09:40→15:15)
[2017-10-26] MEDS: DIFLUPREDNATE 0.05% OPH EMUL 5 ML BOTTLE LEFT EYE SCH ×2 (09:40→13:00)
[2017-10-26] MEDS: FUROSEMIDE 40 MG TABLET PO SCH (09:40)
[2017-10-26] MEDS: FINASTERIDE 5 MG TABLET PO SCH (09:40)
[2017-10-26] MEDS: PANTOPRAZOLE 40 MG TABLET PO SCH (09:40)
[2017-10-26] MEDS: TAMSULOSIN 0.4 MG CAPSULE PO SCH (09:40)
[2017-10-26] MEDS: ATROPINE 1 % OPH SOLN 5 ML BOTTLE LEFT EYE SCH ×2 (09:41→13:00)
[2017-10-26 12:55] VITALS: BP 146/71
== END 2017-10-26 15:40 | DRG 871 ==
LOC: N.ED 10:33 → SUATTDRO 14:12 → N.EDINP 14:12 → N.2E 15:31
PROVIDERS: ATTEND Internal Medicine